=== PATIENT | female | born 1985 | race Caucasian/White ===

== ENCOUNTER 2019-11-15 23:41 | Emergency (ER) | payer BC, SELFPAY ==
[2019-11-15 23:51] VITALS: BP 143/83; PULSE 66; RESP 17; TEMP 36.6; O2SAT 100; BMI 29.0
--- NOTE | 2019-11-16 00:02 | CT_ITS ---
PROCEDURE: CT ABDOMEN PELVIS W CON CLINICAL INDICATION: ruq abd pain, right side back pain Right upper quadrant pain, right-sided back pain nausea and vomiting COMPARISON: No exams were available for comparison TECHNIQUE: IV Contrast: 75ML OPTIRAY 350 Oral Contrast none Axial images obtained with sagittal and coronal reformats. All CT scans at the facility use one or more dose reduction, viz: automated exposure control, ma/kV adjustment per patient size (including targeted exams where dose is matched to indication, i.e. head), or iterative reconstruction technique. FINDINGS: LOWER THORAX: No acute finding ABDOMEN & PELVIS: There is mild distention of the gallbladder along with mild biliary ectasia. Mild splenomegaly at 14 cm. The adrenal glands, pancreas, and kidneys have an unremarkable appearance. No evidence appendicitis. No intestinal obstruction or free air. The uterus is anteverted with mild prominence of the low-density changes of the endometrium nonspecific and may be better evaluated with ultrasound. There is mild thickening of the colon in the hepatic flexure, transverse colon, splenic flexure, and descending colon. No evidence of acute bony anomalies. IMPRESSION: 1. Thickening of the colon which is nonspecific and may be due to nondistention or colitis. 2. Mild gallbladder distension and prominence of the biliary tree. Ultrasound and MRCP may provide further evaluation. 3. Mild prominence of the low-density changes of the endometrium which may be better evaluated with ultrasound if clinically warranted Dictated by: Shakeel Brown MD 11/16/2019 08:18 Electronically signed by Shakeel Brown MD in [place] 11/16/2019 08:18
--- NOTE | 2019-11-16 00:13 | [facility].EDNVD ---
ED Disposition Clinical Impression: Abdominal pain Qualifiers: Abdominal location: right upper quadrant Qualified Code(s): R10.11 - Right upper quadrant pain Disposition: Home, Self-Care Condition on Discharge: Good Instructions: DI for Acute Abdomen Additional Instructions: call pcp today for gb eval Referrals: Kumar Barnard MD [Primary Care Provider] - - Critical Care Critical Care Time: No Attestation: On , the high probability of a clinically significant, sudden or life threatening deterioration of the following system(s) required my full and direct attention, intervention and personal management. The time I documented below is in addition to time spent performing reported procedures but includes the following listed in this critical care notation. Medical Decision Making - Medical Records Medical records reviewed: Yes: I reviewed the patient's medical records. - [place] Inquiry Pt receiving controlled substance: No Vital Signs: 11/15/19 23:51 11/16/19 00:18 Temperature 97.9 F Temperature Source Oral Pulse Rate [Right Brachial] 66 71 Respiratory Rate 17 18 Blood Pressure [Right Arm] 143/83 H 137/78 Blood Pressure Mean [Right Arm] 103 97 Blood Pressure Source [Right Arm] Automatic Cuff Blood Pressure Position [Right Arm] Sitting 02 Sat by Pulse Oximetry 100 97 Oxygen Delivery Method Room Air Room Air - Lab Data Lab results reviewed: Yes: I reviewed the patient's lab results. Lab Results 11/16/19 00:16: WBC 12.5 H, RBC 4.60, Hgb 14.1, Hct 42.6, MCV 92.5, MCH 30.7, MCHC 33.2, RDW 13.3, Plt Count 233, MPV 7.7, Neut % (Auto) 70.4, Lymph % (Auto) 20.9, Cass % (Auto) 3.4, Eos % (Auto) 4.6, Baso % (Auto) 0.8, Neut # (Auto) 8.8 H, Lymph # (Auto) 2.6, Cass # (Auto) 0.4, Eos # (Auto) 0.6 H, Baso # (Auto) 0.1 11/16/19 00:16: Sodium 140, Potassium 3.6, Chloride 97 L, Carbon Dioxide 33 H, Anion Gap 13.6, BUN 24 H, Creatinine 0.90, Estimated Creat Clear 116, Estimated GFR 71, Est GFR ( Amer) 86, Glucose 131 H, Calcium 10.2, Total Bilirubin 0.3, AST 38 H, ALT 22, Alkaline Phosphatase 98, Total Protein 8.5 H, Albumin 4.8, Globulin 3.7 H, Albumin/Globulin Ratio 1.3, Amylase 72, Lipase 162 11/16/19 00:16: Urine Color Yellow, Urine Appearance Clear, Urine pH 6.0, Ur Specific Price 1.025, Urine Protein Negative, Urine Glucose (UA) Negative, Urine Ketones Negative, Urine Blood Negative, Urine Nitrate Negative, Urine Bilirubin Negative, Urine Urobilinogen 0.2, Ur Leukocyte Esterase Negative, Urine WBC 3-5, Ur Squamous Epith Cells 5-10, Urine Bacteria 1+, Urine Mucus 1+ 11/16/19 00:16: Urine HCG, Qual Negative Result diagrams: 11/16/19 00:16 11/16/19 00:16 Orders (Tests/Meds): ED MEDICATIONS Generic Name Dose Route Start Last Admin Trade Name Freq PRN Reason Stop Dose Admin Sodium Chloride 1,000 mls @ 999 mls/hr 11/16/19 00:30 11/16/19 00:33 Sod Chlor 0.9% 1000ml Bag IV 11/16/19 01:30 999 mls/hr .Q1H1M DOREEN Administration Sodium Chloride 8 ml 11/16/19 01:09 11/16/19 01:22 Sodium Chloride 0.9% 10ml Vial IV 12/16/19 01:08 8 ml NEEDED PRN Administration dilute pepcid Discontinued Medications Generic Name Dose Route Start Last Admin Trade Name Freq PRN Reason Stop Dose Admin Famotidine 20 mg 11/16/19 01:09 11/16/19 01:22 Pepcid 20mg/2ml Vial IV 11/16/19 01:10 20 mg ONCE ONE Administration Hydromorphone HCl 1 mg 11/16/19 01:05 11/16/19 01:22 Dilaudid 2mg/Ml Syringe IV 11/16/19 01:06 1 mg ONCE ONE Administration Ioversol 75 ml 11/16/19 00:53 11/16/19 00:55 Rad-Optiray 350 100ml Vial IV 11/16/19 00:54 75 ml ONCE ONE Administration Protocol Ketorolac Tromethamine 30 mg 11/16/19 00:28 11/16/19 00:33 Toradol 30mg/Ml Vial IV 11/16/19 00:29 30 mg ONCE ONE Administration Metoclopramide HCl 10 mg 11/16/19 01:09 11/16/19 01:22 Reglan 10mg/2ml Vial IVP 11/16/19 01:10 10 mg ONCE ONE Administration Ondansetron HCl
[2019-11-16 00:18] VITALS: BP 137/78; PULSE 71; RESP 18; O2SAT 97
[2019-11-16 00:22] LABS: Microscopic, Urine URINE MICROSCOPIC (MICROSCOPIC)
[2019-11-16 00:25] LABS: Basophils # 0.1 K/mm3 (0-0.2); Basophils % 0.8 % (0.1-2.0); Eosinophils # 0.6 K/mm3 (0.0-0.4); Eosinophils % 4.6 % (0.1-12.0); Hematocrit 42.6 % (37.0-47.0); Hemoglobin 14.1 g/dL (12.2-16.2); Lymphocytes # 2.6 K/mm3 (0.7-4.5); Lymphocytes % 20.9 % (10-50); Mean Corpuscular HGB Conc 33.2 g/dL (31.8-35.4); Mean Corpuscular Hemoglobin 30.7 pg (27.0-31.2); Mean Corpuscular Volume 92.5 fl (81-99); Mean Platelet Volume 7.7 fl (7.4-10.4); Monocytes # 0.4 K/mm3 (0.1-1.0); Monocytes % 3.4 % (1.7-9.3); Neutrophils # 8.8 K/mm3 (1.8-7.8); Neutrophils % 70.4 % (37.0-80.0); Platelet Count 233 K/mm3 (142-424); Red Cell Distribution Width 13.3 % (11.5-17.5); White Blood Count 12.5 K/mm3 (4.8-10.8)
[2019-11-16 00:27] LABS: Appearance,Urine CLEAR (Clear); Bilirubin,Urine Negative (Negative); Blood, Urine Negative (Negative); Color,Urine YELLOW (Yellow); Glucose,Urine (UA) Negative (Negative); Ketones,Urine Negative (Negative); Leukocyte Esterase,Urine Negative (Negative); Nitrate,Urine Negative (Negative); Protein,Urine Negative (Negative); Specific Gravity, Urine 1.025 (1.005-1.030); Urobilinogen,Urine 0.2 EU/dl (0.2)
[2019-11-16 00:30] LABS: Urine Pregnancy, HCG Qual. Negative (Negative)
[2019-11-16 00:34] LABS: Bacteria,Urine 1+ /lpf; Mucus,Urine 1+ /lpf
[2019-11-16 00:36] LABS: Alanine Aminotransferase 22 U/L (12-78); Albumin Level 4.8 g/dl (3.5-5.0); Albumin/Globulin Ratio 1.3 (1.1-1.8); Alkaline Phosphatase 98 U/L (38-126); Amylase 72 U/L (30-110); Anion Gap 13.6 mEq/L (5-15); Aspartate Amino Transferase 38 U/L (14-36); Bilirubin,Total 0.3 mg/dl (0.2-1.3); Blood Urea Nitrogen 24 mg/dl (7-17); Calcium 10.2 mg/dl (8.4-10.2); Carbon Dioxide 33 mmol/L (22.0-30.0); Chloride 97 mmol/L (98-107); Creatinine Clearance Estimated 116 mL/min (50-200); Estimated Glomerular Filt Rate 71 ml/min (>60); GFR (African American) 86 ML/MIN (>60); Globulin 3.7 g/dL (1.3-3.2); Glucose 131 mg/dl (74-100); Lipase 162 U/L (23-300); Potassium 3.6 mmoL/L (3.5-5.1); Sodium 140 mmol/L (136-145); Total Protein,Serum 8.5 g/dl (6.3-8.2)
[2019-11-16 01:47] VITALS: BP 123/71; PULSE 75; RESP 16; TEMP 36.7; O2SAT 98
== END 2019-11-16 01:54 | disposition home or self-care (01) ==
PROVIDERS: Emergency Provider Emergency Medicine; PCP Family Medicine
DX: R10.11 Right upper quadrant pain (principal)
CPT/HCPCS: 74177; 80053; 81001; 81025; 82150; 83690; 85025; 96365; 96375; 99283; J2405; Q9967

== ENCOUNTER → 2021-04-22 10:06 | Outpatient (CLI) | payer BC, SELFPAY | PROVIDERS: PCP Family Medicine; Visit Provider Nurse Practitioner | DX: U07.1 COVID-19 (principal) | CPT/HCPCS: C9803; U0003; U0005 ==